=== PATIENT | female | born 1960 | race Caucasian/White ===

== ENCOUNTER 2021-10-12 14:59 | Outpatient (REF) | payer SELFPAY | END 2021-10-12 15:00 | disposition home or self-care (01) | LOC: NCHCN 14:59 | PROVIDERS: Visit Provider Physician Assistant Medical | DX: R35.0 Frequency of micturition (principal) | CPT/HCPCS: 87086 ==

== ENCOUNTER 2021-10-13 03:42 | Outpatient (CLI) | payer SELFPAY ==
--- NOTE | 2021-10-18 18:06 | W.PFT ---
Date of service: 10/13/21 Time of Service: 16:34 Pulmonary Function Test Result Requesting Provider Rajinder Calix Indications: Clearance for N95 Interpretation Spirometry: There is technically no airflow limitation. Although the FEV1/FVC is normal, mild airflow limitation is suggested by the shape of the flow volumes curve and the volume time curve. Impression Likely mild airflow limitation. Clinical Correlation therefore is recommended.
== END 2021-10-13 03:43 | disposition home or self-care (01) ==
LOC: RT 03:43
PROVIDERS: Visit Provider Nurse Practitioner Family
DX: J45.909 Unspecified asthma, uncomplicated (principal); Z87.891 Personal history of nicotine dependence
CPT/HCPCS: 94010

== ENCOUNTER → 2023-01-08 17:06 | Outpatient (CLI) | payer SELFPAY ==
--- NOTE | 2023-01-08 | DI.RAD_ITS ---
Exam(s) XR SHOULDER LT COMPLETE 2+V EXAM: XR SHOULDER LT COMPLETE 2+V CLINICAL HISTORY: LT SHOULDER PAIN-M25.512. TECHNIQUE: 2D digital imaging was performed. COMPARISON: No exams were available for comparison FINDINGS: 3 views No evidence of acute fracture or dislocation nor abnormal soft tissue calcifications. There are mild -moderate degenerative changes in the glenohumeral joint. Also degenerative subarticular cysts in th e greater tuberosity noted. Mild degenerative changes in the AC joint. No osseous lesions evident. IMPRESSION: Mild-moderate degenerative changes in the glenohumeral joint. DATA REPOSITORY: RADIATION DOSE DELIVERED:
--- NOTE | 2023-01-08 17:46 | DI.VRAD_ITS ---
PROCEDURE INFORMATION: Exam: XR Left Shoulder Exam date and time: 01/08/2023 5:10 PM Age: 62 years old Clinical indication: Other: Lt shoulder pain TECHNIQUE: Imaging protocol: Radiologic exam of the left shoulder. Views: 2 or more views. Internal and external rotation with Grashey and transscapular images. COMPARISON: No relevant prior studies available. FINDINGS: Bones/joints: The joint spaces are preserved. There is normal motion between the internal and external rotation images. No dislocation or fracture. Soft tissues: Unremarkable. IMPRESSION: No acute findings. Dictated and Authenticated by: Jesus Isabel MD. Ordering:LATOYA TRAYLOR MD
== END ==
PROVIDERS: Visit Provider Nurse Practitioner Family
DX: M19.012 Primary osteoarthritis, left shoulder (principal)
CPT/HCPCS: 73030

== ENCOUNTER 2023-04-24 12:04 | Emergency (ER) | payer SELFPAY ==
--- NOTE | 2023-04-24 12:15 | DI.RAD_ITS ---
Exam(s) XR TIB/FIB LT XR ANKLE LT COMPLETE EXAM: XR TIB/FIB LT and XR ankle LT complete CLINICAL HISTORY: LEG PAIN. TECHNIQUE: 2D digital imaging was performed of the left ankle, tibia and fibula. Five images were ob tained. AP and lateral views were obtained. COMPARISON: No priors for comparison. FINDINGS: BONES: No acute fracture is present. No bony destructive lesion is seen. There are mild degenerative changes seen in the knee. Sideplate and screws are seen in the distal tibia and fibula. There is kaity cency seen around the screw traversing both the distal tibia and fibula. The ankle joint is well rogelio ntained. Well corticated osseous density is seen at the tip of the medial malleolus which appears ch ronic. SOFT TISSUE: Normal. IMPRESSION: 1. No acute fracture or dislocation. 2. Postsurgical changes seen in the distal tibia and fibula. There is lucency around the screw trave rsing both the distal tibia and fibula. This can be seen with loosening. Correlation with prior exa minations is recommended. DATA REPOSITORY: RADIATION DOSE DELIVERED:
[2023-04-24 12:17] VITALS: BP 147/61; PULSE 92; RESP 15; TEMP 37.1; O2SAT 97
[2023-04-24] MEDS: Gabapentin 300 MG CAP 900 MG PO (12:40)
--- NOTE | 2023-04-24 14:49 | W.ED.GENAD ---
HPI General Stated Complaint: Orthopedic FLACO: 4 Date/Time Provider Initiated Documentation: 04/24/23 12:19. Limitations to Documentation: no limitations. Information obtained by: patient. HPI Narrative: 62-year-old female without significant past medical history presents for evaluation of left ankle pain. Patient reports that in 2019 she had ankle reconstruction surgery, but generally got lost to follow-up because of COVID. She works as an emergency department nurse. She reports over the last few days she has been rolling her ankle at work. SHEe did have a fall but landed on her bottom, no other injuries. Is worried that the ankle feels more unstable and that something may be wrong with the screws. She reports that this is caused her to have some sciatica pain on that side no weakness, difficulty walking, bowel or bladder changes Related Data Home Medications Medication Instructions Recorded Confirmed gabapentin 300 mg capsule 300 mg PO TID #60 caps 04/24/23 Previous Rx's Medication Instructions Recorded gabapentin 300 mg capsule 300 mg PO TID #60 caps 04/24/23 PFSH All Active Problems Ankle pain (Acute) Asthma (Chronic) Social History Smoking/Tobacco Use Status: Never Smoking risk assessment performed?: Yes Alcohol Intake: current Alcohol Intake frequency: holidays/special occasions only Alcohol type: wine Drug use: Never Substance use type: does not use Housing: house Do you feel safe at home: Yes Do you feel safe in your relationship?: Yes Exam Narrative Exam Narrative: Review of Systems: All systems reviewed & are unremarkable except as noted in HPI and below Well-developed, no acute distress NACT PERRL, normal conjunctiva RRR Unlabored respiratory effort Nondistended abdomen Left ankle with lateral surgical scar, well-healed, no overlying erythema, there is a palpable screw or other hardware, but no overlying skin change, some mild lateral swelling, without deformity or instability appreciated No rashes or lesions. no focal neurologic deficits Appropriate mood and affect Course Vital Signs Vital signs: Vital Signs Temperature 37.1 C 04/24/23 12:17 Pulse 92 H 04/24/23 12:17 Respiratory Rate 15 04/24/23 12:17 Blood Pressure 147/61 H 01/10/24 12:17 Pulse Oximetry 97 04/24/23 12:17 Temperature 37.1 C 04/24/23 12:17 Temperature Source Temporal Artery Scan 04/24/23 12:17 Pulse 92 H 04/24/23 12:17 Respiratory Rate 15 04/24/23 12:17 Respiratory Effort Normal 04/24/23 12:40 Blood Pressure 147/61 H 04/24/23 12:17 Blood Pressure Position Sitting 04/24/23 12:17 Pulse Oximetry 97 04/24/23 12:17 Oxygen Delivery Method Room Air 04/24/23 12:17 Oxygen Flow Rate 0 04/24/23 12:17 Pain Level 4 04/24/23 12:17 Medical Decision Making Emergent evaluation of left ankle pain initial differential includes hardware failure, ligamentous injury, sprain, doubt fracture. Imaging obtained, no acute abnormalities noted. There does appear to be some lucency around the screw, this could be secondary to issue with the hardware. No brace needed. Gabapentin given for back pain. Patient is now living in the area and would like to follow-up with orthopedic surgery here. A referral has been placed for further management. Quality:SDOH Health Related Social Needs: No Data to Display Discharge Plan Disposition Patient Disposition: Home Discharge Details Clinical Impression: Ankle pain Primary Care Provider: None,None ED Provider: Shaista Greenfield Home Meds and New Rx's Prescriptions: New gabapentin 300 mg capsule 300 mg PO TID Qty: 60 0RF Discharge Instructions Additional Instructions: REFERRAL PLACED FOR ORTHO FOR FOLLOW UP Stand Alone Forms: Work Release Referrals: Gomez Forde MD [ [facility] STAFF PHYSICIAN] - (HAD SURG IN 2020 ANOTHER STATE, LIVES HERE NOW, HAVING ISSUES WITH ANKLE)
== END 2023-04-24 13:53 | disposition home or self-care (01) ==
PROVIDERS: Emergency Provider Emergency Medicine
DX: M25.572 Pain in left ankle and joints of left foot (principal); Z98.890 Other specified postprocedural states
CPT/HCPCS: 99283; 73590; 73610

== ENCOUNTER 2025-01-27 15:51 | Emergency (ER) | payer BC, SELFPAY ==
[2025-01-27 15:54] VITALS: BP 150/101; PULSE 88; RESP 20; TEMP 36.3; O2SAT 97
--- NOTE | 2025-01-27 16:16 | ED.GENADUL_ITS ---
Discharge Plan Disposition Patient Disposition: Home Condition: Stable Discharge Details Clinical Impression: Torticollis Primary Care Provider: Shelly Figueroa ED Provider: Corey Santacruz Home Meds and New Rx's Prescriptions: New gabapentin 300 mg capsule 300 mg PO TID 5 Days Qty: 15 0RF Continued Trelegy Ellipta 100-62.5-25 mcg blister with device 1 inh inhalation DAILY fluoxetine [Prozac] 10 mg capsule 10 mg PO DAILY Discharge Instructions Additional Instructions: You were injected in 3 separate areas. If not improving within a week follow-up with your primary care provider. If you feel more ill or have new symptoms such as high fevers return to emergency department for reevaluation. HPI General Mode of arrival: ambulatory . Date/Time Provider Initiated Documentation: 01/27/25 15:52 . Limitations to Documentation: no limitations . Information obtained by: patient . History of Present Illness 64 year old F presents to the emergency department with the chief complaint of left upper back pain, described as moderate, Quality is described as aching, and is localized to the neck and back. Patient reports no radiation. Patient started experiencing this day(s) (1) and it has been constant. No relieving factors improve symptom(s), No exacerbating factors reported . Patient notes no other symptoms.. Patient did receive the following treatments prior to arrival, none Related Data Home Medications ?Medication ?Instructions ?Recorded ?Confirmed fluoxetine 10 mg capsule (Prozac) 10 mg PO DAILY 01/1501/27/25 fluticasone fur. 100 mcg-umeclid 1 inh inhalation MICHAEL Y 01/26/25 01/27/25 62.5 mcg-vilant 25 mcg inhalat.powder (Trelegy Ellipta) gabapentin 300 mg capsule 300 mg PO TID 5 days #15 cap s 01/27/25 Previous Rx's ?Medication ?Instructions ?Recorded gabapentin 300 mg capsule 300 mg PO TID 5 days #15 cap s 01/27/25 Allergies Allergy/AdvReac Type Severity Reaction Status Date / Time No Known Allergies Allergy Verified 01/27/25 15:52 General Stated Complaint: Nk/Back Pain FLACO: 4 Review of Systems All systems reviewed & are unremarkable except as noted in HPI and below Constitutional Constitutional: Denies chills, Denies fever(s) and Denies weakness Cardiovascular Cardiovascular: Denies chest pain and Denies dyspnea Respiratory Respiratory: Denies cough and Denies dyspnea Gastrointestinal Gastrointestinal: Denies vomiting Neurologic Neurologic: Denies weakness Exam Const General: no acute distress Orientation: alert HENMT Head: normal to inspection Ears: external ears normal General nose exam: external nose normal Mouth: moist mucous membranes Eyes General: appearance normal, both eyes and all related structures Neck Neck: normal visual inspection and full ROM Resp Effort & Inspection: normal respiratory effort and able to speak in complete sentences Cardio Rate: regular rate Back/Spine/Pelvis Cervical Spine: No cervical spinal tenderness Thoracic/Lumbar Spine: No thoracic spinal tenderness and No lumbar spinal tenderness Skin General skin exam: no rashes or lesions noted Neuro General: patient alert and patient oriented x3 Extrem General: normal to inspection Psych Mental Status: mental status grossly normal Course Vital Signs Vital signs: Vital Signs Temperature 36.3 C L 01/27/25 15:54 Pulse 88 01/27/25 15:54 Respiratory Rate 20 01/27/25 15:54 Blood Pressure 150/101 H 01/27/25 15:54 Pulse Oximetry 97 01/27/25 15:54 Temperature 36.3 C L 01/27/25 15:54 Temperature Source Oral 01/27/25 15:54 Pulse 88 01/27/25 15:54 Respiratory Rate 20 01/27/25 15:54 Blood Pressure 150/101 H 01/27/25 15:54 Blood Pressure Position Sitting 01/27/25 15:54 Pulse Oximetry 97 01/27/25 15:54 Oxygen Delivery Method Room Air 01/27/25 15:54 Oxygen Flow Rate 0 01/27/25 15:54 Pain Level 7 01/27/25 15:54 Medical Decision Making 64-year-old female who states that she gets episodes of torticollis usually gets a trigger point injection in her left upper back but states her provider that she sees for this is vacation so came here for evaluation. Denies any fevers or chills. He localizes the pain to the left upper portion of her back. She has no palpable or visible deformities. She has full range of motion of her neck. She has no midline C-spine T-spine or L-spine tenderness. Suspect musculoskeletal pain, no trauma so I do not feel imaging is indicated and she has no signs of infection or symptoms of infection so do not feel any lab work is indicated. She is requesting a trigger point injection which I feel is reasonable. 3 separate spots in the trapezius after cleaning chlorhexidine and injected a total of 3 cc of combined 2% lidocaine and bupivacaine. She tolerated well. She will follow-up with her PCP if not improving and return precautions given. She also requested a 5-day supply of gabapentin which has helped her in the past which I feel is also reasonable. Differential Diagnosis Differential Diagnosis: Muscle spasm, torticollis PFSH All Active Problems (Updated 01/27/25 @ 16:27 by Corey Santacruz MD) Torticollis (Acute) Altered bowel function (Acute) Chronic insomnia (Acute) Bunion (Acute) Closed fracture of phalanx of foot (Acute) Closed fracture of tibia and fibula (Acute) Hiatal hernia with gastroesophageal reflux disease without esophagitis (Acute) Chronic post-traumatic stress disorder (Acute) Disorder of bone (Acute) Generalized anxiety disorder (Acute) Asthma (Chronic) Medical History (Updated 01/27/25 @ 16:27 by Corey Santacruz MD) Concussion Surgical History (Updated 01/15/25 @ 09:09 by Verónica Thomas RN) H/O reduction mammoplasty H/O bariatric surgery Family History (Updated 01/15/25 @ 09:15 by Verónica Thomas RN) Paternal Grandfather Malignant neoplasm of lung Mother Diabetes Social History (Updated 01/15/25 @ 09:13 by Verónica Thomas RN) Smoking/Tobacco Use Status: Never Smoking risk assessment performed?: Yes Alcohol Intake: current Alcohol Intake frequency: holidays/special occasions only Alcohol type: wine Drug use: Occasionally Substance use type: does not use and other Details: cannabis tincture use insomnia management Housing: house Do you feel safe at home: Yes Do you feel safe in your relationship?: Yes
[2025-01-27] MEDS: Bupivacaine 0.5% Pres-Free 30 ML VIAL IJ (16:20)
[2025-01-27] MEDS: Lidocaine 2% Multi-Dose 50 ML VIAL IJ (16:20)
== END 2025-01-27 16:41 | disposition home or self-care (01) ==
LOC: ER 16:42
PROVIDERS: Emergency Provider Emergency Medicine; PCP Nurse Practitioner Family
DX: M43.6 Torticollis (principal)
CPT/HCPCS: 20552; J0665; J2003

== ENCOUNTER 2025-02-03 10:17 | Day surgery (SDC) | payer BC, SELFPAY ==
--- NOTE | 2025-02-03 06:17 | ANES.PREOP_ITS ---
General Info Date of Service Date Performed: 02/03/25 Height: 5 ft 7 in Weight: 73.936 kg Body Mass Index (BMI): 25.5 Surgical Procedure: Operation Date: 02/03/25 12:35 Proposed Procedure Side Surgeon dominik Leo MD Meds Allergies and Home Medications Allergies Allergy/AdvReac Type Severity Reaction Status Date / Time No Known Allergies Allergy Verified 02/03/25 10:46 Home Medication ?Medication ?Instructions ?Recorded fluoxetine 10 mg capsule (Prozac) 10 mg PO DAILY 01/15 fluticasone fur. 100 mcg-umeclid 1 inh inhalation MICHAEL Y 01/26/25 62.5 mcg-vilant 25 mcg inhalat.powder (Trelegy Ellipta) Current Visit Medications: Current Medications Generic Name Dose Route Start Last Admin Trade Name Freq PRN Reason Stop Dose Admin Ringer's Solution 1,000 mls @ 80 mls/hr 02/03/25 06:00 IV 02/03/25 23:59 INFUSION PERFECTO IV Miscellaneous Supplies 1 each 02/03/25 06:00 Iv Access IV 02/03/25 23:59 DIRECTED PERFECTO Sodium Chloride 0 ml 02/03/25 06:00 Normal Saline Flush 10 Ml Syr IV 02/03/25 23:59 PRN PRN Sodium Chloride 0 ml 02/03/25 06:00 Normal Saline 10 Ml Vial IJ 02/03/25 23:59 DIRECTED PRN Sterile Water 0 ml 02/03/25 06:00 Water,Injection,Sterile 10 Ml Vial IJ 02/03/25 23:59 DIRECTED PRN PFSH Active Problems Active Problems: Problem Status Onset Code Torticollis Acute M43.6 Altered bowel function Acute R19.8 Chronic insomnia Acute F51.04 Bunion Acute M21.619 Closed fracture of phalanx of foot Acute S92.919A Closed fracture of tibia and fibula Acute S82.209A, S82.409A Hiatal hernia with gastroesophageal reflux disease without esophagitis Acute K44.9, K21.9 Chronic post-traumatic stress disorder Acute F43.12 Disorder of bone Acute M89.9 Generalized anxiety disorder Acute F41.1 Asthma Chronic J45.909 Medical History Medical History Concussion Surgical History Surgical History H/O reduction mammoplasty H/O bariatric surgery Tobacco Smoking/Tobacco Use Status: Former Tobacco Use Passive smoking exposure: No Alcohol Alcohol Intake: current Alcohol intake frequency: holidays/special occasions only Alcohol type: wine Substance Use Substance use: Occasionally Substance use type: does not use and other Details: cannabis tincture use insomnia management Details: THC Tincture Vital Signs and Lab Results Vital Signs Most Recent Vital Signs in EMR: Temp Pulse Resp BP Pulse Ox 36.7 C 67 16 136/76 95 02/03/25 10:48 02/03/25 10:48 02/03/25 10:48 02/03/25 10:48 02/03/25 10:48 Anesthesia Assessment and Plan Anesthesia History Personal History: No History of Anesthesia Complications Family History: No Family History of Anesthesia Complications Exercise Tolerance Exercise Tolerance: Metabolic Equivalents>4 Cardiac & Pulmonary Exam Cardiac Exam: Normal S1/S2 Heart Sounds Pulmonary Exam: Clear Bilateral Breath Sounds Implantable Cardiac Device Does patient have a Pacemaker or an ICD?: No Airway Exam Known Difficult Airway: No Mallampati Class: 3 Mouth Opening: Narrow (< 3cm) Thyromental Distance: Less than 3 cm Neck Range of Motion: Limited ROM Neck Circumference: Normal Teeth Condition: Normal Dentition and Removable Dentures/Plates Upper ASA Classification ASA Score: ASA 2 Emergency Case?: No NPO Status NPO Status: NPO Clears >2 hours, Solids >8 hours Anesthesia Plan Resuscitation Status: Full Code Anesthesia Technique: General Anesthesia Airway Planned: Natural Airway Monitors Used: Standard Monitors Preoperative Comments:: 64 yo for colo. Sig PMHx: Asthma (trelegy), GERD, anxiety/PTSD Former smoker, Occ Cannabis/EtOH.
[2025-02-03 10:48] VITALS: BP 136/76; PULSE 67; RESP 16; TEMP 36.7; O2SAT 95
[2025-02-03 11:22] VITALS: BMI 25.5
--- NOTE | 2025-02-03 12:13 | BOWEL_PTH ---
PATIENT: Nani Bull LOC: [facility] U#:[id number] AGE/SX: 64/F ROOM: RE02/03/[address]: Lilian Leo : 1960 BED: DIS: 02/03/2025 SPEC #: [id number] RECD: 02/03/25 17:50 STATUS: ROSA REQ #: [id number] KENZIE: 02/03/25 12:[address]: Lilian Leo DEPT: Surgical Specimen RECD BY: Regina Koch ENTERED: 02/03/25 17:51 SP TYPE: Bowel OTHR DR: Shelly Figueroa Tissues: 1 - BIOPSY BOWEL 2 - BIOPSY BOWEL 3 - BIOPSY BOWEL Procedures: GROSS AND MICRO LEVEL 4 Comments: [id number]
--- NOTE | 2025-02-03 12:32 | W.PM.DSUDISC ---
Date of service: 02/03/25 Discharge Plan Disposition Patient Disposition: Home Condition: Good Discharge Details Reason For Visit: Change in bowel habits Attending Provider: Lilian Leo Primary Care Provider: Shelly Figueroa Recommendations for Follow Up Recommended tests to be ordered by follow up provider: Follow up biopsy results Home Meds and New Rx's Prescriptions: Continued Trelegy Ellipta 100-62.5-25 mcg blister with device 1 inh inhalation DAILY fluoxetine [Prozac] 10 mg capsule 10 mg PO DAILY Discharge Instructions Additional Instructions: Your colonoscopy went well today. The colon appeared normal. Some intermittent biopsies were performed for diagnostic purposes. We will contact you once these biopsy results return. Please contact the general surgery office if you have further questions or concerns. 1. If tolerated, consume a soft, low fiber diet for 1-2 days. [address] Do not drive, drink alcohol, operate machinery, make critical decisions, or do activities that require coordination or balance for 24 hours. 3. Because air was put into your colon during the procedure, expelling air from your rectum (passing gas or farting) is normal. 4. You may not have a bowel movement for 1-3 days because of the colonoscopy prep. This is normal. 5. Go directly to the emergency room if you notice any of the following: Develop chills (warm to touch), or if you have a thermometer and your temperature is above 101 Difficulty breathing or difficultly swallowing Persistent vomiting Severe abdominal pain, other than gas cramps Severe chest pain Black, tarry stools Any bleeding ? exceeding one tablespoon 6. Call your physician if the site where your intravenous was started becomes red, swollen, painful, and warm to touch. 7. Your physician has reviewed your pre-procedure medications. Please continue to take those medications as previously ordered. You will be given specific information/education regarding any changes to your medications before leaving. Activity:: Activity as Tolerated Diet:: As Tolerated Discharge Orders Discharge Orders: Discharge Order (Routine); Ordered 02/03/25 Ordered By: Lilian Leo
[2025-02-03 12:34] VITALS: BP 140/70; PULSE 66; RESP 18; TEMP 36.4; O2SAT 98
--- NOTE | 2025-02-03 12:35 | W.COLOREPORT ---
Date of service: 02/03/25 Time of Service: 12:36 Colonoscopy Report Date of procedure: 02/03/25 Pre-op diagnosis general: Change in bowel habits Post-op diagnosis procedure note: same Procedure: Colonoscopy with biopsy. Surgeon: Lilian Leo Anesthesia Type: General:No Airway Estimated blood loss (mL): 1 Pathology: other (Colon biopsy of ascending, transverse, and descending colon. ) Complications: None Disposition: PACU Indications: Patient is a 64 yo female who presents for a colonoscopy due to changes in bowel habits. Prep: Miralax/Dulcolax Procedure Start Time: 12:02 Procedure End Time: 12:27 Retraction Time: 15 Findings: Normal colonoscopy with evidence of diverticulosis. Procedure Description: Informed consent was obtained. The patient was taken to the endoscopy suite and placed in the left lateral decubitus position. After adequate intravenous sedation, digital rectal exam was performed, which was normal. A colonoscope was inserted into the rectum and negotiated to the cecum. The ileocecal valve and appendiceal orifice were identified. The entire colonic mucosa was then carefully circumferentially inspected upon slow withdrawal of the scope. Cold forcep biopsies were performed in the ascending, transverse, and descending colon. In the sigmoid colon, there was evidence of rectosigmoid diverticulosis. Retroflexion in the rectum was unremarkable. The patient tolerated the procedure well with no complications. Postoperatively, the patient was transferred to the recovery room in stable condition. [place] Bowel Prep [place] Bowel Prep Right Colon: 3 Left Colon: 3 Transverse Colon: 3 Total Score: 9
--- NOTE | 2025-02-03 13:02 | W.ANESPOSTOP ---
Postoperative Evaluation Date, Time and Location Date Performed: 02/03/25 Time Performed: 12:40 Patient Location: Day Surgery Unit Vital Signs Most Recent Imported Vital Signs: Most Recent Vital Signs Temp Pulse Resp BP Pulse Ox 36.4 C L 66 18 140/70 98 02/03/25 12:34 02/03/25 12:34 02/03/25 12:34 02/03/25 12:34 02/03/25 12:34 Pain Score Most Recent Pain Score: Most Recent Pain Score Pain Level 0 02/03/25 12:34 Assessment Mental Status: Awake (Alert & Oriented to Patient Baseline) Airway and Respiratory Function: Patent airway with normal (patient baseline) respiratory exam Cardiovascular Function: Hemodynamically Stable Hydration Status: Adequately Hydrated Nausea & Vomiting: No Nausea or Vomiting Pain: Pt. Denies Any Pain Peripheral Nerve Block: Patient did not receive a nerve block
[2025-02-03 13:05] VITALS: BP 133/85; PULSE 63; RESP 18; TEMP 36.4; O2SAT 99
== END 2025-02-03 13:18 | disposition home or self-care (01) ==
PROVIDERS: PCP Nurse Practitioner Family; Visit Provider Student in an Organized Health Care Education/Training Program
PROC: 0DJD8ZZ Inspection of Lower Intestinal Tract, Via Natural or Artificial Opening Endoscopic (ICD-10-PCS; CPT 45378; principal; 2025-02-03 12:30)
DX: R19.4 Change in bowel habit (principal); K21.9 Gastro-esophageal reflux disease without esophagitis; J45.909 Unspecified asthma, uncomplicated; K57.30 Diverticulosis of large intestine without perforation or abscess without bleeding
CPT/HCPCS: 45380; 88305; J2704